=== PATIENT | male | born 1960 | race African-American/Black ===

== ENCOUNTER 2023-02-06 11:30 | Inpatient (IN) | payer OTHER ==
[2023-02-06 12:18] VITALS: BMI 21.6
[2023-02-06] MEDS ORDERED: IBUPROFEN 600 MG TABLET (FP) PO PRN (12:50)
[2023-02-06] MEDS ORDERED: NALOXONE HCL 0.4 MG/ML VIAL IM PRN (12:50)
[2023-02-06] MEDS ORDERED: BENZONATATE 200 MG CAPSULE PO PRN (12:50)
[2023-02-06] MEDS ORDERED: BENZOCAINE/MENTHOL (CHLORASEPTIC ) LOZENGE MM PRN (12:50)
[2023-02-06] MEDS ORDERED: NALOXONE HCL (KLOXXADO) 8 MG SPRAY NS PRN (12:50)
[2023-02-06] MEDS ORDERED: POLYETHYLENE GLYCOL (HEALTHYLAX) 3350 17 GM PACKET PO PRN (12:50)
[2023-02-06] MEDS ORDERED: COLLOIDAL OATMEAL 1 BAR EACH TP PRN (12:50)
[2023-02-06] MEDS ORDERED: guaiFENesin 600 MG TABLET.ER (FP) PO PRN (12:50)
[2023-02-06] MEDS ORDERED: MAGNESIUM HYDROX 2400MG/30ML ORAL SUSPENSION 30 ML CUP PO PRN (12:50)
[2023-02-06] MEDS ORDERED: LOPERAMIDE HCL 2 MG CAPSULE PO PRN (12:50)
[2023-02-06] MEDS ORDERED: hydrOXYzine PAMOATE 25 MG CAPSULE (FP) PO PRN (12:50)
[2023-02-06] MEDS ORDERED: MAG HYDROX/AL HYDROX/SIMETH 30 ML UNIT-DOSE CUP PO PRN (12:50)
[2023-02-06] MEDS ORDERED: ACETAMINOPHEN 325 MG TABLET (FP) PO PRN (12:50)
[2023-02-06] MEDS ORDERED: AMMONIUM LACTATE 12% LOTION 225 GM BOTTLE TP PRN (12:50)
[2023-02-06] MEDS ORDERED: IBUPROFEN 400 MG TABLET (FP) PO PRN (12:50)
[2023-02-06 16:39] LABS: HEMATOCRIT 41.2 % (35.4-49); HEMOGLOBIN 13.6 GM/dL (11.7-16.9); MCH 28.4 pg (25.7-33.7); MEAN CELL VOLUME 85.9 fl (80-96); MEAN PLT VOLUME 7.9 fl (7.5-11.1); PLATELET COUNT 290 10^3/uL (134-434); RDW 13.9 % (11.9-15.9); WHITE BLOOD COUNT 6.4 K/mm3 (4.0-10.0)
[2023-02-06 16:41] LABS: POTASSIUM 3.8 mmol/L (3.5-5.1)
[2023-02-06 16:46] LABS: BLOOD UREA NITROGEN 9.8 mg/dL (7-18); CALCIUM 10.2 mg/dL (8.5-10.1)
[2023-02-06 16:48] LABS: ALBUMIN 4.2 g/dl (3.4-5.0)
[2023-02-06 16:50] LABS: CREATININE 1.8 mg/dL (0.55-1.3)
[2023-02-06 16:52] LABS: BILIRUBIN,TOTAL 0.3 mg/dL (0.2-1); TOT PROT 7.6 g/dl (6.4-8.2)
[2023-02-06 17:08] LABS: SYPHILIS W/ RPR CONF NON-REACTIVE (NONREACTIVE)
[2023-02-06] MEDS: PRENATAL VITAMINS W/ FOLIC ACID TABLET (FP) PO SCH (18:21)
[2023-02-06] MEDS ORDERED: TUBERCULIN PPD 5 TU/0.1ML VIAL ID ONE (18:25)
[2023-02-06] MEDS ORDERED: TUBERCULIN PPD 5 TU/0.1ML SYRINGE (IN PATIENT USE ONLY) ID ONE (18:45)
[2023-02-06] MEDS: MELATONIN 5 MG TABLETS PO SCH (21:37)
[2023-02-06] MEDS: THIAMINE HCL 100 MG TABLET (FP) PO SCH (21:37)
[2023-02-07] MEDS ORDERED: methaDONE HCL 10 MG TABLET PO SCH (09:15)
[2023-02-07] MEDS ORDERED: TUBERCULIN PPD 5 TU/0.1ML SYRINGE (IN PATIENT USE ONLY) ID ONE (10:00)
[2023-02-07] MEDS: PRENATAL VITAMINS W/ FOLIC ACID TABLET (FP) PO SCH (10:19)
[2023-02-07 10:53] LABS: EPI CELLS 6 /uL (0-25.1); HYALINE CASTS 1 /uL (0-3.1); PH,URINE 5.5 (5.0-8.0); URINE APPEARANCE CLEAR; URINE BACTERIA 7 /uL (0-1359); URINE BILIRUBIN NEGATIVE (NEGATIVE); URINE COLOR YELLOW; URINE GLUCOSE (UA) NEGATIVE (NEGATIVE); URINE KETONE NEGATIVE (NEGATIVE); URINE LEUK ESTERASE NEGATIVE (NEGATIVE); URINE NITRITE NEGATIVE (NEGATIVE); URINE PROTEIN NEGATIVE (NEGATIVE); URINE RBC 87 /uL (0-23.9); URINE UROBILINOGEN 0.2 mg/dL (0.2-1.0); URINE WBC 13 /uL (0-25.8)
[2023-02-07 11:52] LABS: URINE CRYSTALS CA OXALATE FEW /hpf
[2023-02-07] MEDS: THIAMINE HCL 100 MG TABLET (FP) PO SCH (21:28)
[2023-02-07] MEDS: MELATONIN 5 MG TABLETS PO SCH (21:28)
[2023-02-08] MEDS: PRENATAL VITAMINS W/ FOLIC ACID TABLET (FP) PO SCH (09:50)
[2023-02-08] MEDS ORDERED: PANTOPRAZOLE 20 MG TABLET PO PRN (12:18)
[2023-02-08] MEDS: THIAMINE HCL 100 MG TABLET (FP) PO SCH (21:30)
[2023-02-08] MEDS: MELATONIN 5 MG TABLETS PO SCH (21:30)
[2023-02-09] MEDS: PRENATAL VITAMINS W/ FOLIC ACID TABLET (FP) PO SCH (09:43)
[2023-02-09 10:50] LABS: CHOLESTEROL 179 mg/dL (50-200)
[2023-02-09 10:52] LABS: LDL CHOLESTEROL (ONLY SJRH) 101 mg/dL (5-100)
[2023-02-09 10:54] LABS: HDL CHOLESTEROL 61 mg/dL (40-60)
[2023-02-09] MEDS ORDERED: ACETAMINOPHEN 325 MG TABLET (FP) PO PRN (11:31)
[2023-02-09] MEDS: amLODIPine BESYLATE 5 MG TABLET (FP) PO SCH (12:25)
[2023-02-09] MEDS: MELATONIN 5 MG TABLETS PO SCH (21:33)
[2023-02-09] MEDS: THIAMINE HCL 100 MG TABLET (FP) PO SCH (21:33)
[2023-02-10] MEDS: amLODIPine BESYLATE 5 MG TABLET (FP) PO SCH (09:58)
[2023-02-10] MEDS: PRENATAL VITAMINS W/ FOLIC ACID TABLET (FP) PO SCH (09:58)
[2023-02-10] MEDS: THIAMINE HCL 100 MG TABLET (FP) PO SCH (21:23)
[2023-02-10] MEDS: MELATONIN 5 MG TABLETS PO SCH (21:23)
[2023-02-11] MEDS: amLODIPine BESYLATE 5 MG TABLET (FP) PO SCH (09:35)
[2023-02-11] MEDS: PRENATAL VITAMINS W/ FOLIC ACID TABLET (FP) PO SCH (09:35)
[2023-02-11] MEDS: THIAMINE HCL 100 MG TABLET (FP) PO SCH (21:25)
[2023-02-11] MEDS: MELATONIN 5 MG TABLETS PO SCH (21:25)
[2023-02-12] MEDS: amLODIPine BESYLATE 5 MG TABLET (FP) PO SCH (09:53)
[2023-02-12] MEDS: PRENATAL VITAMINS W/ FOLIC ACID TABLET (FP) PO SCH (09:53)
[2023-02-12] MEDS: THIAMINE HCL 100 MG TABLET (FP) PO SCH (21:37)
[2023-02-12] MEDS: MELATONIN 5 MG TABLETS PO SCH (21:37)
[2023-02-13] MEDS: amLODIPine BESYLATE 5 MG TABLET (FP) PO SCH (09:45)
[2023-02-13] MEDS: PRENATAL VITAMINS W/ FOLIC ACID TABLET (FP) PO SCH (09:46)
[2023-02-13] MEDS: THIAMINE HCL 100 MG TABLET (FP) PO SCH (21:26)
[2023-02-13] MEDS: MELATONIN 5 MG TABLETS PO SCH (21:26)
[2023-02-14] MEDS: PRENATAL VITAMINS W/ FOLIC ACID TABLET (FP) PO SCH (09:39)
[2023-02-14] MEDS: amLODIPine BESYLATE 5 MG TABLET (FP) PO SCH (09:39)
[2023-02-14] MEDS: MELATONIN 5 MG TABLETS PO SCH (21:43)
[2023-02-14] MEDS: THIAMINE HCL 100 MG TABLET (FP) PO SCH (21:43)
[2023-02-15] MEDS: PRENATAL VITAMINS W/ FOLIC ACID TABLET (FP) PO SCH (09:44)
[2023-02-15] MEDS: amLODIPine BESYLATE 5 MG TABLET (FP) PO SCH (09:44)
[2023-02-15] MEDS: MELATONIN 5 MG TABLETS PO SCH (21:24)
[2023-02-15] MEDS: THIAMINE HCL 100 MG TABLET (FP) PO SCH (21:24)
[2023-02-16] MEDS: amLODIPine BESYLATE 5 MG TABLET (FP) PO SCH (09:53)
[2023-02-16] MEDS: PRENATAL VITAMINS W/ FOLIC ACID TABLET (FP) PO SCH (09:53)
[2023-02-16] MEDS: THIAMINE HCL 100 MG TABLET (FP) PO SCH (21:15)
[2023-02-16] MEDS: MELATONIN 5 MG TABLETS PO SCH (21:15)
[2023-02-17] MEDS: amLODIPine BESYLATE 5 MG TABLET (FP) PO SCH (09:56)
[2023-02-17] MEDS: PRENATAL VITAMINS W/ FOLIC ACID TABLET (FP) PO SCH (09:56)
[2023-02-17] MEDS: THIAMINE HCL 100 MG TABLET (FP) PO SCH (21:20)
[2023-02-17] MEDS: MELATONIN 5 MG TABLETS PO SCH (21:20)
[2023-02-18 08:58] VITALS: PULSE 82
[2023-02-18] MEDS: amLODIPine BESYLATE 5 MG TABLET (FP) PO SCH (09:53)
[2023-02-18] MEDS: PRENATAL VITAMINS W/ FOLIC ACID TABLET (FP) PO SCH (09:54)
[2023-02-18] MEDS: THIAMINE HCL 100 MG TABLET (FP) PO SCH (22:37)
[2023-02-18] MEDS: MELATONIN 5 MG TABLETS PO SCH (22:37)
[2023-02-19 06:55] VITALS: TEMP 97.3
[2023-02-19 09:03] VITALS: BP 120/84; RESP 15
[2023-02-19] MEDS: PRENATAL VITAMINS W/ FOLIC ACID TABLET (FP) PO SCH (09:43)
[2023-02-19] MEDS: amLODIPine BESYLATE 5 MG TABLET (FP) PO SCH (09:43)
== END 2023-02-19 15:12 | disposition home or self-care (01) | DRG 772 ==
LOC: YASAS 11:30 → Y3E 15:04
PROVIDERS: ADMIT Allergy & Immunology; ATTEND Psychiatry & Neurology Pain Medicine
PROC: HZ42ZZZ Group Counseling for Substance Abuse Treatment, Cognitive-Behavioral (ICD-10-PCS; principal; 2023-02-06)
DX: F11.20 Opioid dependence, uncomplicated (principal); F13.10 Sedative, hypnotic or anxiolytic abuse, uncomplicated; F14.10 Cocaine abuse, uncomplicated; F10.10 Alcohol abuse, uncomplicated; I10 Essential (primary) hypertension; M17.12 Unilateral primary osteoarthritis, left knee; R73.9 Hyperglycemia, unspecified
CPT/HCPCS: 36415; 80053; 80061; 81003; 82962; 85027; 86780; 86803; 87635; 93005; 93010